=== PATIENT | male | born 2005 | race Two or more races ===

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

== ENCOUNTER 2025-02-23 21:24 | Emergency (ER) | payer OTHER ==
[~2025-02-23] VITALS: Ht 172.7 cm; Wt 69.4 kg
[2025-02-23] MEDS ORDERED: ACETAMINOPHEN 500 MG GEL..CAP PO ONE (21:53)
[2025-02-23] MEDS ORDERED: METHYLPREDNISOLONE SOD SUCC 40 MG VIAL IM SCH (22:03)
[2025-02-23] MEDS ORDERED: METHYLPREDNISOLONE SOD SUCC 40 MG VIAL ONE (22:06)
[2025-02-23] MEDS ORDERED: IPRATROPIUM/ALBUTEROL SULFATE 3 ML AMPUL.NEB IH ONE ×2 (22:06→22:21)
[2025-02-23] MEDS ORDERED: IPRATROPIUM/ALBUTEROL SULFATE 3 ML AMPUL.NEB IH SCH (22:15)
[2025-02-23 22:40] LABS: BASO % 0.2 % (0.1-1.2); HEMATOCRIT 41.2 % (40.1-51.0); HEMOGLOBIN 14.1 g/dL (13.7-17.5); LYMPH # 0.58 (1.18-3.74); LYMPH % 9.2 % (19.3-53.1); MEAN CORPUSCULAR HEMOGLOBIN 29.3 pg (25.6-32.2); MONO # 0.98 (0.24-0.82); NEUT # 4.74 (1.56-6.13); NEUT % 74.9 % (34.0-71.1); PLATELET COUNT 206 K/uL (163-369); RED BLOOD COUNT 4.82 M/uL (4.63-6.08); RED CELL DISTRIBUTION WIDTH 12.4 % (11.6-14.4)
[2025-02-23 23:02] LABS: MONO % 15.5 % (4.7-12.5)
[2025-02-23 23:42] LABS: COVID-19 AG NEGATIVE (NEGATIVE); INFLUENZA A AG POSITIVE (NEGATIVE); INFLUENZA B AG NEGATIVE (NEGATIVE)
== END 2025-02-24 00:23 | disposition home or self-care (01) ==
LOC: ER 21:24 → EMR PED 21:24
DX: J10.1 Influenza due to other identified influenza virus with other respiratory manifestations (principal); Z88.1 Allergy status to other antibiotic agents; Z20.822 Contact with and (suspected) exposure to COVID-19